=== PATIENT | female | born 1970 | race Caucasian/White ===

== ENCOUNTER 2019-07-10 08:59 | Day surgery (SDC) | payer OTHER ==
[2019-07-09 08:46] VITALS: BMI 29.3
[2019-07-10 10:19] VITALS: TEMP 97.7
[2019-07-10 10:54] VITALS: BP 103/65; PULSE 78
== END 2019-07-10 10:30 | disposition home or self-care (01) ==
LOC: JASU-ENDO 08:59
PROVIDERS: ATTEND Internal Medicine Gastroenterology
PROC: 0DJD8ZZ Inspection of Lower Intestinal Tract, Via Natural or Artificial Opening Endoscopic (ICD-10-PCS; principal; 2019-07-10 09:30)
DX: R10.31 Right lower quadrant pain (principal); K64.8 Other hemorrhoids
CPT/HCPCS: 81025